=== PATIENT | female | born 1995 | race Caucasian/White ===

== ENCOUNTER → 2020-06-13 | Outpatient (CLI) | payer OTHER ==
[2020-06-13 16:08] LABS: Gliadin AB IgA, Deaminated NEGATIVE (NEGATIVE); Gliadin AB IgA, Unit 0.2 U/mL; Gliadin AB IgG, Deaminated NEGATIVE (NEGATIVE)
== END | disposition home or self-care (01) ==
LOC: LABWHC1 10:21
PROVIDERS: ATTEND Nurse Practitioner
DX: R19.4 Change in bowel habit (principal)
CPT/HCPCS: 36415; 83516

== ENCOUNTER 2020-06-27 09:22 | Day surgery (SDC) | payer OTHER ==
[2020-06-24 15:08] VITALS: BMI 43.0
[~2020-06-27 09:22] MED LIST: LACTATED RINGERS 1,000 ML IV SCH
[2020-06-27 09:53] VITALS: TEMP 98
[2020-06-27] MEDS ORDERED: MIDAZOLAM 2 MG/2 ML VIAL ONE (10:17)
[2020-06-27] MEDS ORDERED: fentaNYL (PF) 50 MCG/ML 2 ML AMP ONE (10:17)
[2020-06-27] MEDS ORDERED: PROPOFOL 10 MG/ML 20 ML VIAL IV ONE (10:17)
--- NOTE | 2020-06-27 10:27 | P.PCN ---
Date of Procedure: 06/27/20 Procedure(s) Performed: BRIEF HISTORY: Patient is a 25-year-old, pleasant, female scheduled for an upper endoscopy as a part of evaluation of persistent nausea for the last several months duration.. She does have occasional epigastric abdominal pain but no emesis. She has been on omeprazole 40 mg daily for one year with no help. PROCEDURE PERFORMED: Esophagogastroduodenoscopy with biopsy. PREOPERATIVE DIAGNOSIS: Intermittent epigastric pain, persistent nausea. IV sedation per anesthesia. PROCEDURE: After informed consent was obtained, the patient was brought into the endoscopy unit. IV sedation was administered by Anesthesia under continuous monitoring. Initially the Olympus GIF-140 video endoscope was inserted into the mouth. Esophagus intubated without any difficulty. It was gradually advanced into the stomach and duodenum and carefully examined. The bulb and the second part of the duodenum appeared normal. Abscesses were done from the duodenum to rule out celiac disease. The scope at this time was withdrawn to the stomach, adequately insufflated with air, and upon careful examination, mucosa of the antrum, had mild gastritis and biopsies were done from this area. The body, cardia and the fundus appeared normal. The scope was then withdrawn into the esophagus. The GE junction was located at 39 cm from the incisors. Moderate sliding I'll hernia noted. The esophagus appeared normal. There were no erosions or ulcerations seen, biopsies were done from the distal esophagus and the patient tolerated the procedure well. IMPRESSION: 1. Small hiatal hernia. 2. Mild antral gastritis. RECOMMENDATIONS: The findings of this examination were discussed with the patient as well as her family. She was advised to follow with the biopsy results. She will continue with omeprazole 40 mg daily and she'll be seen in office in 2-3 weeks.
[2020-06-27 10:34] VITALS: RESP 16
[2020-06-27 11:00] VITALS: BP 146/85; PULSE 72
== END 2020-06-27 11:09 | disposition home or self-care (01) ==
LOC: ORWHC2ENDO 09:22
PROVIDERS: ATTEND Internal Medicine Gastroenterology
DX: K29.70 Gastritis, unspecified, without bleeding (principal); K44.9 Diaphragmatic hernia without obstruction or gangrene; K21.00 Gastro-esophageal reflux disease with esophagitis, without bleeding; Z79.899 Other long term (current) drug therapy
CPT/HCPCS: 81025; 88305; 88342; 43239; J2250; J3010; J2704

== ENCOUNTER → 2021-11-24 | Outpatient (CLI) | payer OTHER ==
--- NOTE | 2021-11-24 19:01 | MR ---
EXAMINATION TYPE: MR MRCP with MRI liver with contrast DATE OF EXAM: 11/24/2021 10:44 AM INDICATION: Patient age:Female; 26 years old; Reason for study: R93.2 ABNORMAL FINDINGS OF LIVER IMAGING; COMPARISON: Abdominal ultrasound 10/14/2021. TECHNIQUE: Multi planar, T2-weighted imaging with and without fat saturation and chemical shift imag ing was performed of the abdomen. Then, heavily T2 weighted imaging (half-Fourier acquisition single- shot turbo spin-echo) was utilized in order to study the biliary system. Maximum intensity projectio n images were reconstructed from the original data of the biliary tree. Error on contrast scans, NO pre done, Pre label images are the 30 sec post alfreda, no 60 sec imaging performed. 3D MRCP scan imaging issue, repeated with changes but still not great FINDINGS: MRCP: There is mild extrahepatic biliary dilatation with the common hepatic duct measuring 8 mm in th e common bile duct measuring up to 7 mm. There is smooth tapering towards the ampulla of Vater. The m ain pancreatic duct is not dilated. There is minimal intrahepatic biliary dilation centrally. No evidence of cholelithiasis or gallbladder wall thickening. Abdomen: There are multiple hepatic lesions including: * 25mm lesion within segment 8, but the central high T2/low T1 scar/center. Postcontrast imaging dem onstrates enhancement with hyperintense central scar on delayed imaging. * 10 mm lesion within segment 2, postcontrast imaging demonstrates enhancement that persists on radha yed imaging. * 7 mm and 33 mm lesion within segment 7. postcontrast imaging demonstrates enhancement that persist s on delayed imaging.48 mm which is partially exophytic involving segment 2 and 3, demonstrates centr al area of high T2 and low T1 signal scar/center. Postcontrast imaging demonstrates enhancement with hyperintense central scar on delayed imaging. These lesions demonstrate arterial phase hyperenhancement which persists on delayed imaging. Some of these lesions are conspicuous on T2 and T1-weighted imaging. But are more apparent on diffusion-weigh beatriz imaging. There is hepatic cysts within the bilateral hepatic lobes. There is increased signal involving the liver and spleen on in phase chemical shift imaging with resp ect out of phase. The adrenal glands, kidneys, and pancreas have a normal appearance. IMPRESSION: 1. Mild dilation of the biliary system with smooth tapering towards the ampulla of Vater. No evidenc e of choledocholithiasis. No definitive evidence of stricture. 2. Multiple hepatic lesions with benign enhancement characteristics , the smaller of which are favor ed to represent hepatic adenomas in the setting of female patients with contraceptives hormones versu s focal nodular hyperplasia. The larger 2 lesions are favored to represent focal nodular hyperplasia. 3. Findings suggestive of iron deposition within the liver and spleen.
== END | disposition home or self-care (01) ==
LOC: RADMRIMAIN 09:22
PROVIDERS: ATTEND Internal Medicine Gastroenterology
DX: R93.2 Abnormal findings on diagnostic imaging of liver and biliary tract (principal)
CPT/HCPCS: 74181; A9585